=== PATIENT | female | born 2005 | race Caucasian/White ===

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

== ENCOUNTER 2025-04-13 11:03 | Outpatient (AMB) | payer OTHER, SELFPAY ==
--- OUTSIDE RECORDS SUMMARY | 2025-04-13 11:06 | XMS_ITS | Clinical Summary ---
Author Organization [facility] Address [address] [place] [phone] Phone Care Team Providers Care Pattern Maker Name Role Phone La Dillard MD Primary Care Provider + Allergies No known active allergies Medications levonorgestrel- ethinyl estradiol (LILI, Kelsie,) 0.15-0.03 mg per tablet 0 Active spironolactone (ALDACTONE) 50 MG tablet 9 Active phenazopyridine (PYRIDIUM) 100 MG tabletIndicatio ns:Dysuria Take 1 tablet (100 mg total) by mouth 3 (three) times a day as needed for pain (specific location in comments) (bladder). 10 tablet 0 Active dapsone (ACZONE) 5 % topical gel Active sertraline (ZOLOFT) 25 MG tablet Take 25 mg by mouth daily. Active sertraline (ZOLOFT) 100 MG tablet 100 mg. 3 Active tretinoin, emollient, 0.05 % Crea Apply topically nightly at bedtime. Active Active Problems No known active problems Encounters Date Type Department Care Team Description 02/11/2025 4:10 PM EDT Office Visit [facility] [address] [place] [address] [place] [id number] Tessy Mcpherson MD Routine gynecological examination (Primary Dx); Screening for cervical cancer from Last 3 Months Family History Medical History Relation Comments Liver cancer Father Rectal cancer Father Relation Status Comments Father Social History Tobacco Use Types Packs/Day Years Used Date Smoking Tobacco: Never Smokeless Tobacco: Never Tobacco Cessation:Counseling Given: Not Answered Alcohol Use Standard Drinks/Week Comments Not Currently 0 (1 standard drink = 0.6 oz pur e alcohol) Education Answer Date Recorded Are you interested in more education? Not on ramu e 10/27/2022 Are you concerned about learning? Not on file 10/27/2022 No 10/27/2022 No 10/27/2022 Digital Access Answer Date Recorded No 11/24/2022 No 11/24/2022 Reliable internet access at home? Not on file 11/24/2022 Device with a working camera? Not on file Comments Unknown Sex and Gender Information Value Date Recorded Sex Assigned at Not on file Legal Sex Female 8:43 PM EDT Gender Identity Not on file Sexual Orientation Not on file Last Filed Vital Signs Vital Sign Reading Time Taken Comments Blood Pressure 102/70 02/11/2025 4:21 PM EDT Pulse 84 05/20/2020 11:57 AM EST Temperature 36.9 C (98.5 F) 05/20/2020 11:57 AM EST Respiratory Rate 22 05/20/2020 11:57 AM EST Oxygen Saturation 98% 05/20/2020 11:57 AM EST Inhaled Oxygen Concentration - - Weight 65.8 kg (145 lb) 02/11/2025 4:21 PM EDT Height 168.9 cm (5' 6.5 ) 05/20/2020 11:57 AM ES T Body Mass Index - - Plan of Treatment Health Maintenance Due Date Last Done Comments POTASSIUM LEVEL 2004 DEPRESSION SCREENING 2016 SMOKING Hx and SMOKELESS TOBACCO SCREENING 01/27/2017 CHLAMYDIA SCREENING 2020 ADOLESCENT UNIVERSAL LIPID SCREENING 01/27/2021 HEPATITIS C SCREENING 01/27/2022 HIV ONE-TIME SCREENING (18-65 YEARS) 01/27/2022 INFLUENZA VACCINE (#1) 2025 , 04/02/2023, 05/16/2022, Additional history exists COVID-19 VACCINE ( season) 2025 01/16/2022, 02/15/2021, 01/25/2021 Adult Td,Tdap Booster 01/30/2026 01/31/2016 COMBINED DTaP,Tdap,Td (7 - Td or Tdap) 01/30/2026 01/31/2016, 02/24/2008, 08/07/2005, Additional history exists PAP SMEAR 02/11/2026 02/11/2025 HIB VACCINES Completed 05/08/2005, 08/02, 2004, Additional history exists PNEUMOCOCCAL VACCINES (0-49 years) Aged Out 05/08/2005, 2004, 2004, Additional history exists No longer eligible based on patient's age to complete this topic MMR VACCINES Completed 02/24/2008, 02/01/2005 HEPATITIS A VACCINES Completed 03/30/2014, 01/31/20 HPV VACCINES Completed 02/16/2017, 04/02, 01/31/2016 MENINGOCOCCAL VACCINES (ACWY) Completed 01/30/2020, 01/31/2016 MENINGOCOCCAL VACCINES (B) Completed 01/31/2022, Medical Devices Not on file Procedures Procedure Name Priority Date/Time Associated Diagnosis Comments PAP TEST Routine 02/11/2025 12:00 AM EDT from Last 3 Months Results * Pap Test (02/11/2025 12:00 AM EDT) Report [address] [id number] Customer Order Clerk: Claude Ellison MD [facility] Cytology Report FINAL DIAGNOSIS A. PAP SMEAR (THIN PREP) CE: SPECIMEN ADEQUACY: Satisfactory for evaluation; transformation zone present. INTERPRETATION: EPITHELIAL CELL ABNORMALITY - SQUAMOUS. Low grade squamous intraepithelial lesion. This specimen was analyzed by the automated ThinPrep Imaging System ([employer] and manually rescreened by a immigration manager and/or pathologist. Electronically Signed Out By: MD Carmen Baker CT(ASCP) By his/her signature above, the pathologist listed as making the Final Diagnosis certifies that he/she has personally reviewed this case and confirmed or corrected the diagnosis. The Pap test is a screening test primarily for squamous cancers and precursors and has associated false-negative and false-positive results. New technologies such as liquid-based preparations may decrease but will not eliminate all false-negative results. Regular sampling and follow-up of unexplained clinical signs and symptoms are recommended to minimize false negative results. CLINICAL HISTORY Date of Last Menstrual Period: Not Provided Menstrual History: Unknown Contraceptive History: BCPs Other Clinical Conditions: Screening Pap SPECIMEN SOURCE A: PAP SMEAR (THIN PREP) CE Patient Name: KATHI BARCLAY : 2005 (Age: 20) Sex: F Institution: [facility] Location: [facility] Date of Collection: 02/11/2025 Date of Reported: 02/16/2025 14:54 Results to: Tessy Mcpherson MD [facility] Final Diagnosis A. PAP SMEAR (THIN PREP) CE: SPECIMEN ADEQUACY: Satisfactory for evaluation; transformation zone present. INTERPRETATION: EPITHELIAL CELL ABNORMALITY - SQUAMOUS. Low grade squamous intraepithelial lesion. This specimen was analyzed by the automated ThinPrep Imaging System ([employer] and manually rescreened by a immigration manager and/or pathologist. [facility] Conversion Type 02/11/2025 9:43 AM EDT us Tessy Mcpherson MD CYTOLOGY ORDERABLES Edited Res ult - Final [facility] [address] [place] [address] from Last 3 Months Insurance [place] [employer] [facility] Care Teams Pattern Maker Relationship Specialty Start Date End Date La Dillard MD [address] [place] [id number] SANDRA Dodd PCP - General 05/20/20 Additional Source Comments The information contained in this document represents components of the legal health record. It is not the complete legal health record.[facility]
--- OUTSIDE RECORDS SUMMARY | 2025-04-13 11:06 | XMS_ITS | Clinical Summary ---
Author Organization [facility] Address [address] [place] [address] Care Team Providers Care Non Categorical Preschool Teacher Name Role Phone Unavailable Primary Care Provider Unavailabl e Social History Tobacco Use Types Packs/Day Years Used Date Smoking Tobacco: Never Assessed Comments Unknown Sex and Gender Information Value Date Recorded Sex Assigned at Female 04/11/2022 1:33 AM EDT Legal Sex Female 1:33 AM EDT Gender Identity Not on file Sexual Orientation Not on file Last Filed Vital Signs Vital Sign Reading Time Taken Comments Blood Pressure - - Pulse - - Temperature - - Respiratory Rate - - Oxygen Saturation - - Inhaled Oxygen Concentration - - Weight 62.5 kg (137 lb 12.6 oz) 10/14/2021 8:58 AM EDT Height 169 cm (5' 6.54 ) 07/18/2021 10: 15 AM EST Body Mass Index - - Plan of Treatment Not on file
--- NOTE | 2025-04-13 11:10 | MHC.PC.OV ---
Vital Signs 04/13/25 11:14 Height 5 ft 6.5 in Weight 143 lb 8 oz BMI 22.8 BP 98/66 Blood Pressure Location Lt brachial Position Sitting Respiration 12 Pulse 69 Pulse Source Pulse Oximeter Temp 96.9 F Temp Source Oral Pulse Oximetry (%) 99 Oxygen Delivery Method Room Air Intake Visit Reasons: PE Intake Note: New patient to establish care and cpe. Print Shop Assistant Required: No Allergies No Known Allergies Allergy (Verified 04/13/25 11:18) Medication List - Last Reviewed 04/13/25 by Jewel Charles MA dapsone 5% topical levonorgestrel-ethinyl estrad 0.15-0.03 mg (Cheli (28)) 1 tab PO DAILY sertraline 25 mg PO DAILY spironolactone 100 mg PO BID tretinoin 0.05% appl topical DAILY Tobacco use date assessed: 04/13/25 Dental Screening Dental Screen Date: 04/13/25 Did you have a dental visit in the last 12 months?: Yes Did you have a dental problem in the last 6 months where you did not have access to dental care?: No Was dental information given to patient?: Patient has dentist HPI HPI Comments History of Present Illness Details 20 y/o F with acne, GERARDO, strong family hx of Cancer and WPW Surgery: wisdom tooth ext; hx of nasal fracture repair; R elbow fracture w/ repair, reflux procedure 2004 Fhx: Paternal great aunt w/ breast and cervical ca; Paternal great grandma uterine ca; Dad w/ rectal ca (age 48), Brother WPW, Paternal uncle and Dad with Lane syndrome Social: works at [employer], in school for nursing, will grad October 2025; plans to work at [employer] in Trauma/ED Health Maintenance Tdap 2015 Flu 01/2025 Pap 2024, [facility] [place] [facility] 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 [facility] No records Anxiety: - History of anxiety. - Effective management with sertraline. - Counseling previously attempted but not deemed helpful. Acne: - Treatment includes spironolactone and topicals. - Considering decrease in spironolactone usage. - Dermatology consultation planned for dosage adjustment. Fhx WPW. Denies Sx. Offered and declined annual EKG Past Surgical History - Nasal fracture with osteosynthesis, not a complete rhinoplasty. - Right elbow fracture repair in 2011. 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 Family History - Paternal great aunts with history of ovarian, cervical, and breast cancer. - Paternal great grandmother with uterine cancer. - Paternal history of rectal cancer metastasized to liver at age 48. - Brother with Bltbr-Dprmpenxi-Eaanl syndrome. - Paternal uncle and father with Lane syndrome. - Paternal uncle with testicular cancer before age 50. 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 - Student at [employer], expected to graduate in October. - Plays soccer at school. Health Maintenance - Current with flu and tetanus vaccinations. - Plans for colorectal cancer screening to begin at age 37 due to family history. - Monthly self-breast exams performed. - Discussed abdominal symptoms and recommendations for vigilance against colorectal symptoms. Review of Systems - General: Denies weight fluctuations. - Musculoskeletal: Denies joint pain except for menstruation-related back pain. - Dermatologic: Regular dermatology visits for acne. - Cardiovascular: Denies palpitations or cardiac symptoms. - Gastrointestinal: Reports father's history of colorectal cancer symptoms. - Menstrual: Severe premenstrual back pain noted. Physical Exam General: Well developed, well nourished, in no acute distress. Appears stated age. Head: Normocephalic, atraumatic. Eyes: Pupils are equal, round and reactive to light and accommodation. Conjunctivae are clear. Scleras nonicteric bilat. Vision grossly normal. Ears: TMs clear AU, EACS WNL Nose: Patent, without discharge. Neck: No carotid bruit bilat. Supple, no adenopathy or thyromegaly. Breast: Edu on SBE. Patient reports a bump on the right side for a year, but technical editor was not concerned, thought it was bone. Lungs: Clear to auscultation bilaterally. No rales, rhonchi or wheeze noted. Good air flow in all clifford. Heart: Regular rate and rhythm. No murmurs, click, rubs or gallops are noted. Abdomen: Bowel sounds present in all quadrants. The abdomen is soft, nontender, with no masses or organomegaly noted. No hernias are noted. : Deferred. Reviewed recommendations for routine INSURANCE WRITER Pulses: Peripheral pulses are equal and palpable bilaterally. Extremities: No clubbing, cyanosis nor edema is noted. No swelling in ankles. Neurologic: Gait and station normal. Cranial Nerves 2-12 intact. Motor strength grossly symmetrical and intact. No sensory loss. Balance normal. Skin: No rashes, ulcers, or lesions noted. Turgor is good. Skin color is good. Hair and nails are without abnormalities. Psych: Normal eye contact, affect and mood appropriate, and normal interactions. Patient is alert and appropriate to context. Results Pending Discussion Notes We discussed the patient's history of anxiety and acne management strategies, including the potential reduction of spironolactone during her next dermatology visit. Her family history of cancer necessitates earlier colorectal screenings at 37. She is informed about symptoms requiring prompt evaluation considering her strong family cancer history. We talked about the option of annual EKGs for cardiac monitoring due to family history, but the patient prefers a symptomatic approach. A comprehensive lab screening was recommended to establish a baseline considering her family history of various conditions. Patient was given time to ask questions. All questions were answered to their satisfaction. Assessment and Plan 1. Anxiety - Maintain sertraline without changes. - refill sent declined counseling 2. Acne - Current treatment continuing; discuss reduction with data keyer. Active w/ derm 3. Family History of Cancer - Colorectal screening at age 37. - Monitor for symptoms. 4. Menstrual-Related Back Pain - Recommend follow-up with MOTOR EXPERT. consider US given her family hx of INSURANCE WRITER cancer - OCP refilled 5. Preventive Screening - Lab baseline; vaccinations current. Patient Instructions - Continue taking your current medications as prescribed. - Schedule your next dermatology appointment to discuss spironolactone dosage. - Start colorectal cancer screening at age 37. - Monitor for changes in bowel habits or unexpected weight changes. - Follow up with MOTOR EXPERT for menstrual-related pain. - Check your email for access to the health portal and use it to communicate with me. - RTO 1 year CPE, sooner as needed. Consent The patient was informed about the need for colorectal screening starting at age 37 due to family history. I explained the importance of monitoring for gastrointestinal symptoms. Consent was obtained for ordering baseline labs for comprehensive health evaluation. Patient was informed and verbally consented to the use of an ambient scribe for clinic note documentation during this visit. An additional 20 minutes was spent addressing the problem(s) noted at todays visit. This includes time spent before the visit reviewing the chart, time spent during the visit, and time spent after the visit on documentation reviewing laboratory results, diagnostic imaging, medications, performing a medically necessary evaluation, counseling on diagnoses, care coordination, ordering appropriate tests, ordering appropriate medications, review of tests performed by other providers, reporting test results with the patient, communication with other healthcare providers. [facility] Social History (Updated 04/13/25 @ 11:11 by Jewel Charles MA) Housing: House Alcohol intake: current Alcohol intake frequency: a few times a month Patient Tobacco Use Status: Never used Tobacco e-Cigarette/Vaping Use: Never Used Second Hand Smoke Exposure: No service: No Current occupational status: unemployed and student Cognitive needs: No Hearing needs: No Vision needs: No Questionnaire PHQ-9 Over the last 2 weeks, how often have you been bothered by any of the following problems? 1. Little interest or pleasure in doing things: not at all 2. Feeling down, depressed, or hopeless: not at all 3. Trouble falling or staying asleep, or sleeping too much: not at all 4. Feeling tired or having little energy: not at all 5. Poor appetite or overeating: not at all 6. Feeling bad about yourself - or that you are a failure or have let yourself or your family down: not at all 7. Trouble concentrating on things, such as reading the newspaper or watching television: not at all 8. Moving or speaking so slowly that other people could have noticed. Or the opposite - being so fidgety or restless that you have been moving around a lot more than usual: not at all 9. Thoughts that you would be better off or of hurting yourself in some way: not at all Total score: 0 Depression Screening Interpretation: Negative Depression Screening Done: Yes 80674 - PHQ-9 Billing: Yes Source: Developed by Drs. Eugenio Gonzales, Payt Jansen, Ed Coates and colleagues, with an educational francis from [employer]. Thrive Questionnaire Date Thrive assessed: 04/07/25 I am a: Patient What is your living situation today?: I have a steady place to live Within the past 12 months, did the food you bought not last and you didn't have the money to get more?: Never true Within the past 12 months, did you worry whether your food would run out before you got money to buy more?: Never true Do you have trouble paying for medicines?: No Do you have trouble getting transportation to medical appointments?: No Do you have trouble paying your heating and electricity bill?: No Do you have trouble taking care of your child, family member or friend?: No Do you have trouble with day-to-day activities such as bathing, preparing meals, shopping, managing finances, etc.?: No Are you currently unemployed and looking for a job?: No Are you interested in more education?: No Please select the resources that you would like help with: None Currently or been in a relationship where the following occur: No concerns reported THRIVE Score: 0 AUDIT C Alcohol Use Questionnaire (AUDIT-C) 1. How often do you have a drink containing alcohol?: Monthly or less 2. How many drinks containing alcohol do you have on a typical day when you are drinking?: 1 or 2 3. How often do you have six or more drinks on one occasion?: Never Total Score: 1 Score Reviewed/Action Taken: Yes GERARDO-7 AMB Questionnaire GERARDO-7 Date GERARDO - 7 assessed: 04/13/25 Feeling nervous, anxious, or on edge: 3 = Nearly every day Not being able to stop or control worryin = Several days Worrying too much about different things: 1 = Several days Trouble relaxin = Several days Being so restless that it is hard to sit still: 0 = Not at all Becoming easily annoyed or irritable: 0 = Not at all Feeling afraid as if something awful might happen: 3 = Nearly every day Total GERARDO-7 score (0-4 normal; 5-9 mild; 10-14 moderate; 15-21 severe): 9 Source: Developed by Drs. Eugenio Gonzales, Paty Jansen, Ed Coates and colleagues, with an educational francis from [employer]. GERARDO-7 Assessment Billing GERARDO-7 Assessment Tool: GERARDO-7 Assessment 24642 Physical exam (Primary Care) Tobacco/Smoking Status: Tobacco use Status Patient Tobacco Use Status Never used Tobacco 04/13/25 11:11 e-Cigarette/Vaping Use Never Used 04/13/25 11:11 Depression Screening Interpretation: Negative Thrive Assessment: Date of Thrive Assessment Date Thrive assessed 04/07/25 04/07/25 16:59 Currently or been in a relationship where the following occur: No concerns reported Coding Level of Care Code New Pt Level 2 (56796) New Pt Prev Care 18-39yr(36324 Diagnoses Encounter to establish care with new provider Z76.89 Uses oral contraception Z30.41 Acne vulgaris L70.0 Acne type: acne vulgaris GERARDO (generalized anxiety disorder) F41.1 History of Papanicolaou smear of cervix Z92.89 Family history of breast cancer Z80.3 Family history of Dudzg-Wzqickocr-Rattp (WPW) syndrome Z82.49 Family history of uterine cancer Z80.49 Family history of cervical cancer Z80.49 Family history of rectal cancer Z80.0 Dysmenorrhea N94.6 Family history of alcoholism in father Z81.1 Encounter for general adult medical examination without abnormal findings Z00.00 Laboratory exam ordered as part of routine general medical examination Z00.00 Additional Codes GERARDO-7 Assessment Billing - GERARDO-7 Assessment Tool: GERARDO-7 Assessment 02228 ([id number]) PHQ-9 - 16731 - PHQ-9 Billing: Yes ([id number]) Assessment & Plan Assessment & Plan (1) Encounter to establish care with new provider: Code(s): Z76.89 - Persons encountering health services in other specified circumstances (2) Uses oral contraception: Code(s): Z30.41 - Encounter for surveillance of contraceptive pills Category: Social Hx (3) Acne: Comment: NE Derm Code(s): L70.9 - Acne, unspecified Category: Medical Qualifiers: Acne type: acne vulgaris Qualified Code(s): L70.0 - Acne vulgaris (4) GERARDO (generalized anxiety disorder): Code(s): F41.1 - Generalized anxiety disorder Category: Medical (5) History of Papanicolaou smear of cervix: Onset Date: ~2024 Code(s): Z92.89 - Personal history of other medical treatment Category: Medical (6) Family history of breast cancer: Code(s): Z80.3 - Family history of malignant neoplasm of breast Category: Medical (7) Family history of Kblhc-Djzmdsifu-Roflx (WPW) syndrome: Comment: Brother Code(s): Z82.49 - Family history of ischemic heart disease and other diseases of the circulatory system Category: Medical (8) Family history of uterine cancer: Code(s): Z80.49 - Family history of malignant neoplasm of other genital organs Category: Medical (9) Family history of cervical cancer: Code(s): Z80.49 - Family history of malignant neoplasm of other genital organs Category: Medical (10) Family history of rectal cancer: Comment: Dad age 48 Code(s): Z80.0 - Family history of malignant neoplasm of digestive organs Category: Medical (11) Dysmenorrhea: Code(s): N94.6 - Dysmenorrhea, unspecified Category: Medical (12) Family history of alcoholism in father: Code(s): Z81.1 - Family history of alcohol abuse and dependence Category: Medical (13) Encounter for general adult medical examination without abnormal findings: Onset Date: ~04/13/25 Code(s): Z00.00 - Encounter for general adult medical examination without abnormal findings Category: Medical (14) Laboratory exam ordered as part of routine general medical examination: Code(s): Z00.00 - Encounter for general adult medical examination without abnormal findings Category: Medical Plan . Orders: Orders Complete Blood Count no Diff Today Z00.00 - Encounter for general adult medical examination without abnormal findings Comprehensive Met. Panel Today Z00.00 - Encounter for general adult medical examination without abnormal findings Hemoglobin A1c Today Z00.00 - Encounter for general adult medical examination without abnormal findings Lipid Panel Today Z00.00 - Encounter for general adult medical examination without abnormal findings Vitamin D 25-OH Total Today Z00.00 - Encounter for general adult medical examination without abnormal findings Microalbumin, Random (w Creat) Today Z00.00 - Encounter for general adult medical examination without abnormal findings TSH reflex Free T4 Today Z00.00 - Encounter for general adult medical examination without abnormal findings Vitamin B12 and Folate Today Z00.00 - Encounter for general adult medical examination without abnormal findings Medications: New levonorgestrel-ethinyl estrad 0.15-0.03 mg (Cheli (28)) 1 tab PO DAILY 84 tabs 2RF sertraline 25 mg PO DAILY 90 tabs 2RF Patient Instructions: Walk-In Care (Urgent Care): We Make it Easy Walk-in for urgent medical issues such as: ? Seasonal Allergies ? Insect Bites ? Cough ? Diarrhea ? Acute Asthma Attacks ? Back, Knee or Joint Pain ? Ear Infection ? Fever without a Rash ? Headaches ? Nausea ? [place] Eye, Rash or Skin Irritation ? Sore Throat ? Sports Physicals ? Vomiting Most insurances are accepted. Patients do not need to be part of the [facility] to seek care at the walk-in clinic. Locations [address] [place] [address] Open Sunday through Sunday 8am-5pm *Hours may vary due to staffing availability. To confirm Walk-In Care hours please call. [facility] , [place] [address] ? [phone] [facility] Walk-In Care in [place] provides services to ages 18 and over. Open Sunday-Sunday: 7 a.m. to 5 p.m. and Sunday: 9 a.m. to 3 p.m.* *Hours may vary due to staffing availability. To confirm Walk-In Care hours in [place], please call [phone]. [address] [place] [address] ? [phone] [facility] Walk-In Care in [place] provides services to ages 12 and over. Open Sunday-Sunday: 8 a.m. to 5 p.m. Hours may vary due to staffing availability. To confirm Walk-In Care hours in [place], please call [phone]. LABORATORY SERVICES: [facility] Lab ? Primary Location [address] [place] [address] Sunday through Sunday 6:00 AM ? 5:00 PM Sunday 7:00 AM ? 11:00 AM* [phone] The [facility] Lab is centrally located near the front entrance of the [facility] for easy outpatient access. Convenient parking is provided for outpatients. *Hours may vary due to staffing availability. To confirm Laboratory hours for any location, please call [phone]. Offsite Location For your convenience, we offer offsite laboratory draw stations at the following locations: [address] [place] [address] ? [facility] [address], [address] Sunday through Sunday 7:30 AM ? 1:00 PM* [phone] *Hours may vary due to staffing availability. To confirm Laboratory hours for any location, please call [phone]. [place] ? [address] Sunday through Sunday 6:00 AM ? 3:30 PM* Sunday 6:30 AM ? 3 PM* [phone] *Hours may vary due to staffing availability. To confirm Laboratory hours for any location, please call [phone]. [address] [facility] Sunday through Sunday 7:30 AM ? 4:00 PM* [phone] *Hours may vary due to staffing availability. To confirm Laboratory hours for any location, please call [phone]. [address] [facility] Sunday through 9:00 AM ? 4:00 PM* *Hours may vary due to staffing availability. To confirm Laboratory hours for any location, please call [phone]. Appointments are not necessary. Walk-ins are welcome. Like all the departments throughout the [facility], our Lab undergoes frequent reviews to ensure the quality and accuracy of test results, and our staff takes special pride in its status as a nationally accredited facility. Patient Portal: [facility] ONE PATIENT. ONE RECORD. BETTER CARE. [facility] has a fully integrated, cutting-edge mobile electronic health information system that has revolutionized the way we care for our patients and manage our organization. This system improves communication and coordination enabling us to provide safe, higher-quality care, and an overall positive experience for staff and patients. Our first priority, as always, is to deliver the highest quality care possible. The system is running in the background supporting that priority. This portal is for all [facility] services and practices. If you are experiencing any technical difficulties with enrolling or logging into the Patient Portal please complete the [facility] Patient Portal Technical Support Form. [facility] now offers a new secure on-line interactive tool for patients to review their health information ? ?Patient Portal. This interactive web portal will enable patients and their families to take an active role in their care by providing easy, secure access to their health information via the internet. The Patient Portal provides patients with instant access to their health information, including laboratory results, medications, allergies, demographic information, visit history, and more. In addition to managing their own care, parents and health care proxies with authorized consent will appreciate the ability to access the records of those individuals for whom they provide care. Please note: if you wish to gain access (Proxy) to another patient?s portal, you will be required to come to the Medical Records Department in person at [facility]. Both the patient giving proxy access and the proxy will need to provide photo identification and complete the appropriate authorization. The Patient Portal also allows track their appointments online. The [facility] Patient Portal also saves patients time by allowing them to submit updates to their demographic and contact information prior to their visits. Portal email notifications will also alert patients to any new activity on their portal, such as test results and new appointments. In order to initially enroll in the [facility] Patient Portal, you will need to enter some required information including the following: your [facility] Medical Record number your personal home email address name date of Please note: In order to enroll in the [facility] Patient Portal, we need to have your email address on file in your electronic medical record. ?The email address needs to be specific for one person (yourself) in order for your Portal enrollment to be successful. ?You can update your email address in person with our Registration staff when you are registering for a hospital visit. ?Otherwise, you will need to come to the Health Information Management (Medical Records) Department at [facility]. ?We are open from Sunday ? Sunday from 7:30 a.m. ? 4:30 p.m. ?You will be required to present a photo id. Once you have successfully enrolled in the Patient Portal, you will receive a one-time user id and password for the Portal, sent to your email address. ?This will allow you to log into the Patient Portal within 99 hrs and reset your own logon id and password, and define personal security questions. ?Once your permanent login and password have been set, you can log into the [facility] Patient Portal at any time via the blue button above or from the Portal Logon button on any page of the [facility] website. [facility] encourage all of our patients to enroll in Patient Portal as it presents a valuable opportunity for patients and their families to actively participate in their care and stay healthy Welcome to [facility]. ?We look forward to working with you. Health screenings for women You should visit your health care provider from time to time, even if you are healthy. The purpose of these visits is to: Screen for medical issues Assess your risk for future medical problems Encourage a healthy lifestyle Update vaccinations and other preventive care services Help you get to know your provider in case of an illness Information Even if you feel fine, you should still see your provider for regular checkups. These visits can help you avoid problems in the future. For example, the only way to find out if you have high blood pressure is to have it checked regularly. High blood sugar and high cholesterol levels also may not have any symptoms in the early stages. A simple blood test can check for these conditions. There are specific times when you should see your provider or receive specific health screenings. The [place] Preventive Services Task Force publishes a list of recommended screenings. Below are screening guidelines for women ages 18 to 39. BLOOD PRESSURE SCREENING Your blood pressure should be checked at least once every 3 to 5 years if: Your blood pressure is in the normal range (top number less than 120 mm Hg and bottom number less than 80 mm Hg) You don't have risk factors for high blood pressure Ask your provider if you need your blood pressure checked more often if: The top number is 120 to 129 mm Hg or the bottom number is 70 to 79 mm Hg You have diabetes, heart disease, kidney problems, are overweight, or have certain other health conditions You have a first-degree relative with high blood pressure You are Black You had high blood pressure during a If the top number is 130 mm Hg or greater or the bottom number is 80 mm Hg or greater, this is considered stage 1 hypertension. Schedule an appointment with your provider to learn how you can reduce your blood pressure. Watch for blood pressure screenings in your area. Ask your provider if you can stop in to have your blood pressure checked. BREAST CANCER SCREENING Experts do not agree about the benefits of breast self-exams in finding breast cancer or saving lives. Talk to your provider about what is best for you. A screening mammogram is not recommended for most women under age 40. Your provider may discuss and recommend mammograms, MRI scans, or ultrasounds if you have an increased risk for breast cancer, such as: A mother or sister who had breast cancer at a young age (most often starting screening earlier than the age the close relative was diagnosed) You carry a high-risk genetic marker CERVICAL CANCER SCREENING Cervical cancer screening should start at age 21 years unless your provider advises otherwise. After the first test: Women ages 21 through 29 should have a Pap test every 3 years. Exoprts do not agree on whether HPV testing is recommended for this age group. Women ages 30 through 65 should be screened with either a Pap test every 3 years or the HPV test every 5 years or both tests every 5 years (called cotesting ). Women who have been treated for precancer (cervical dysplasia) should continue to have Pap tests for 20 years after treatment or until age 65, whichever is longer. If you have had your uterus and cervix removed (total hysterectomy), and you have not been diagnosed with cervical cancer or precancer (high grade cervical neoplasia), you do not need cervical cancer screening. CHOLESTEROL SCREENING Cholesterol screening should begin at: Age 45 for women with no known risk factors for coronary heart disease Age 20 for women with known risk factors for coronary heart disease Repeat cholesterol screening should take place: Every 5 years for women with normal cholesterol levels More often if changes occur in lifestyle (including weight gain and diet) More often if you have diabetes, heart disease, kidney problems, or certain other conditions DIABETES SCREENING You should be screened for diabetes starting at age 35 and then repeated every 3 years if you have no risk factors for diabetes. Screening may need to start earlier and be repeated more often if you have other risk factors for diabetes, such as: You have a first degree relative with diabetes. You are overweight or have obesity. You have high blood pressure, prediabetes, or a history of heart disease. Screening for diabetes should be done if you are planning to become and you are overweight and have other risk factors such as high blood pressure. DENTAL EXAM Go to the dentist once or twice every year for an exam and cleaning. Your dentist will evaluate if you need more frequent visits. EYE EXAM Have an eye exam every 5 to 10 years before age 40. If you have vision problems, have an eye exam every 2 years or more often if recommended by your provider. You should have an eye exam that includes an examination of your retina (back of your eye) at least every year if you have diabetes. IMMUNIZATIONS Commonly needed vaccines include: Flu shot: get one every year. COVID-19 vaccine: ask your provider what is best for you. Tetanus-diphtheria and acellular pertussis (Tdap) vaccine: have one at or after age 19 as one of your tetanus-diphtheria vaccines if you did not receive it as an adolescent. Tetanus-diphtheria: have a booster (or Tdap) every 10 years. Varicella vaccine: receive 2 doses if you never had chickenpox or the varicella vaccine. Hepatitis B vaccine: receive 2, 3, or 4 doses, depending on your exact circumstances. Measles, mumps, and rubella (MMR) vaccine: receive 1 to 2 doses if you are not already immune to MMR. Your provider can tell you if you are immune. Ask your provider about the human papillomavirus (HPV) vaccine if: You have not received the HPV vaccine in the past You have not completed the full vaccine series (you should catch up on this shot) Ask your provider if you should receive other immunizations if you have certain health problems that increase your risk for some diseases such as pneumonia. INFECTIOUS DISEASE SCREENING Women who are sexually active should be screened for chlamydia and gonorrhea up until age 25. Women 25 years and older should be screened for chlamydia and gonorrhea if at high risk. Screening for hepatitis C: All adults ages 18 to 79 should get a one-time test for hepatitis C. people should be screened at every . Screening for human immunodeficiency virus (HIV): All people ages 15 to 65 should get a one-time test for HIV. Depending on your lifestyle and medical history, you may also need to be screened for infections such as syphilis and HIV, as well as other infections. PHYSICAL EXAM All adults should visit their provider from time to time, even if they are healthy. The purpose of these visits is to: Screen for disease Assess your risk of future medical problems Encourage a healthy lifestyle Update your vaccinations and other preventive care services Maintain a relationship with a provider in case of an illness Your height, weight, and BMI should be checked at every exam. During your exam, your provider may ask you about: Depression and anxiety Diet and exercise Alcohol and tobacco use Safety issues, such as using seat belts, smoke detectors, and intimate partner violence Your medicines and risk for interactions SKIN SELF-EXAM Your provider may check your skin for signs of skin cancer, especially if you're at high risk, such as if you: Have had skin cancer before Have close relatives with skin cancer Have a weakened immune system OTHER SCREENING Talk with your provider about colon cancer screening if you have a strong family history of colon cancer or polyps, or if you have had inflammatory bowel disease or polyps yourself. Routine bone density screening of women under 40 is not recommended.
[2025-04-13 11:14] VITALS: BP 98/66; PULSE 69; RESP 12; TEMP 36.1; O2SAT 99; BMI 22.8
== END 2025-04-13 11:41 | disposition home or self-care (01) ==
LOC: HO.HMCFM 11:04
PROVIDERS: PCP Nurse Practitioner Family; Visit Provider Nurse Practitioner Family
DX: Z00.00 Encounter for general adult medical examination without abnormal findings (principal); L70.0 Acne vulgaris; Z30.41 Encounter for surveillance of contraceptive pills; F41.1 Generalized anxiety disorder; Z92.89 Personal history of other medical treatment; Z80.3 Family history of malignant neoplasm of breast; Z82.49 Family history of ischemic heart disease and other diseases of the circulatory system; Z80.49 Family history of malignant neoplasm of other genital organs; Z80.0 Family history of malignant neoplasm of digestive organs; N94.6 Dysmenorrhea, unspecified; Z81.1 Family history of alcohol abuse and dependence

== ENCOUNTER 2025-04-13 11:03 | Outpatient (REF) | payer OTHER, SELFPAY ==
--- OUTSIDE RECORDS SUMMARY | 2025-04-13 11:51 | XMS_ITS | Data Portability ---
Author Organization [place] - [facility], Allergy Address [address] [address] Care Team Providers Care Pharmacy Graduate Intern Name Role Phone VENKATESH PETERSON Referring Provider Assessment Encounter Date Assessment Date Assessment LastModified by Organization Details LastModified Time 10/17/2024 10/17/2024 19-year-old female presents today for evaluation of her nose. She had nasal trauma and CNR 2 years ago. She reports that in the last year she has developed sinus infections with symptoms including facial pressure and postnasal drip and headaches around the eyes. She does note some bilateral nasal congestion, though airflow seems adequate on exam today. There is a caudal deviation to the right with a spur to the left. I do not see any polyps or purulence. I recommended CT sinus to better assess the sinus anatomy. We discussed that is also possible that her symptoms are manifestation of migraine. [email or web address] Not available 10/22/2024 07:40:57 10/20/2024 10/20/2024 Patient presents for tonsil evaluation as directed by her dentist. Due to 3+ infections in each of the last 3+ years, the patient meets criteria for tonsillectomy. Risks reviewed. There is a 5% risk of bleeding during the healing process when the scab falls off. Occasionally it requires a trip to the emergency room and or operating room to control the bleeding. Additional risks of dehydration, hospital readmission, throat pain, voice change, swallowing dysfunction and velopharyngeal insufficiency (food or beverage coming out of the nose when swallowing) are also possible. After the surgery the patient should expect temporary bad breath, ear aches, stiff neck and the worst sore throat of their life. It will typically last up to 2 weeks. Usually 1 week out of school or work is needed to recover, and then they may return with light activities for an additional week before resuming regular routine. All questions were answered. Patient would prefer not to undergo tonsillectomy if not necessary. Discussed with patient her airway appears widely patent and there is no concern for obstructive sleep apnea. She has successfully undergone general anesthesia in the past for her closed reduction nasal fracture, and she tolerated it well. Given today's exam findings and her history of tolerating general anesthesia in 2022, I do not feel that she is at a significantly increased risk of mortality during general anesthesia for wisdom tooth extraction. There is no indication that her tonsils are at risk of obstructing her airway during an intubated procedure. Patient may follow up as needed. [email or web address] Not available 10/20/2024 16:42:32 Plan of Treatment Reminders Order Date Submit Date Provider Last Modified By Organization Details Last Modified Time Details Appointments None recorded. Lab None recorded. Referral None recorded. Procedures None recorded. Surgeries None recorded. Imaging CT, sinuses, w/o contrast 2024 025 [place] [facility] [place], [address], [address], [place], [address], 09:09:28 Medication Orders None recorded. Patient TargetsNo targets recorded. Patient InstructionsNo instructions recorded. Reason for Referral None Reported. Results Created Date Observation Date Name Description Value Unit Range Abnormal Flag Note LastModifiedBy Organization Detail LastModifiedTime 10/30/19 25 10/27/2024 CT, sinus es, w/o contr ast No observ ation record ed. [email or web address] [facility] [place] [address], [place], [address], 12/02/2024 14:55:25 Result Notes None recorded. Problems Name Problem SNOMED Code Status Onset Date Resolution Date Notes Provider Name and Address Organization Details Recorded Time Closed fracture of nasal bones 82913956 Active 2022 Fracture of nasal bones, initial encounter for closed fracture; Note: Date Diagnosed : 12/08/2022 1:45 PM (S02.2XXA ) Not Available [facility] 4 03:25:28 Fractured nasal bones 187962397 Active 2022 Fracture of nasal bones, subsequen t encounter for fracture with routine healing; Note: Date Diagnosed : 12/20/2022 9:30 AM (S02.2XXD ) Not Available [facility] 4 03:25:28 Follow-up visit Active 2022 Medical surveilla nce following completed treatment ; Note: Date Diagnosed : 12/20/2022 9:30 AM (Z09) Not Available [facility] 4 03:25:28 Chronic sinusitis 08324463 Active 2024 KELI VEGA MD [address] [facility], [place], [address] , [facility] - [facility] 5 10:18:49 Deviated nasal septum 323346098 Active 2024 KELI VEGA MD [address],[place] [facility], [place], [address] , [place] - [facility] 5 10:20:52 Hypertrop hy of tonsils 68245403 Active 2024 Lorin powell [place] - [facility] 5 13:58:06 Recurrent acute streptoco ccal tonsillit is 50266179689 721759 Active 2024 Lorin powell [place] - [facility] 5 16:37:17 Problem Notes None recorded. Procedures Surgical History Date Name Laterality Status Provider Name and Address Organization Details Recorded Time JMSNasal/Sinus Endoscopy completed KELI VEGA MD [address], [place], [address], [facility] - [facility] 10/22/2024 07:41:18 Imaging Results None recorded. Procedure Notes None recorded. Medical Equipment None Reported. Allergies No known drug allergies Medications Name Sig Start Date Stop Date Status Note LastModified by Organization Details LastModified Time amoxicill in 500 mg capsule TAKE 1 TABLET BY MOUTH 3 TIMES A DAY 10/17 completed Not Available Not Available Not Available benzonata te 200 mg capsule TAKE 1 CAPSULE BY MOUTH THREE TIMES A DAY FOR COUGH FOR 7 DAYS 10/17 completed Not Available Not Available Not Available phenazopy ridine 200 mg tablet TAKE 1 TABLET BY MOUTH THREE TIMES DAILY 10/17 completed Not Available Not Available Not Available spironola ctone 100 mg tablet TAKE 1 TABLET BY MOUTH TWICE A DAY active Not Available Not Available No t Available amoxicill in 875 mg tablet TAKE 1 TABLET BY MOUTH 2 TIMES PER DAY FOR 7 DAYS TAKE WITH FOOD 10/17 completed Not Available Not Available Not Available sertralin e 25 mg tablet TAKE 1 TABLET (25 MG TOTAL) BY MOUTH DAILY. active Not Available Not Available No t Available nitrofura ntoin monohydra te/macroc rystals 100 mg capsule TAKE 1 CAPSULE BY MOUTH TWICE DAILY FOR 5 DAYS 10/17 completed Not Available Not Available Not Available dapsone 5 % topical gel active Medicati on ID: [id number] B rand Name: dapsone Send Method: E-Prescr ibed Sub s Allowed: subs OK Speci al Instruct ion: APPLY 1 UNITS TOPICALL Y EVERY MORNING. Medicat ionGener icName: dapsone Not Available Not Available Not Available Altavera (28) 0.15 mg-0.03 mg tablet 10/17 completed Medicati on ID: [id number] B rand Name: Altavera (28) Sen d Method: E-Prescr ibed Sub s Allowed: subs WICHO Dougherty al Instruct ion: TAKE 1 TABLET BY MOUTH EVERY DAY Medi cationGe nericNam e: Altavera (28) Not Available Not Available Not Available Vitals Date Recorded Body height Body mass index (BMI) Body mass index (BMI) [Percentile] Per age and sex Body weight Provider Name and Address Organization Details Last Updated DateTime 10/17/2024 167.64 cm 21.6 kg/m2 47 % 61590.38 g Darcie Hsu [place] - [facility] 10/17/2024 09:51:48 Date Recorded Body height Body mass index (BMI) [Percentile] Per age and sex Body mass index (BMI) Body weight Provider Name and Address Organization Details Last Updated DateTime 10/20/2024 167.64 cm 47 % 21.6 kg/m2 19532.38 g Sayda Waters [place] - [facility] 10/20/2024 13:38:14 Social History None recorded. Functional Status None recorded. Mental Status None recorded. Family History Nothing Reported. Medical History Condition Response Allergies/Hayfever N Heart Problems N Anxiety Y Tonsil Infections N Emphysema N Migraines N Thyroid Problems N Glaucoma N Depression N COPD N Developmental Delay N Nasal or Sinus Problems N Anemia N Immune System Disorder N Anesthesia Complications N Heart Attack ([place]) N Other Skin Condition N Diabetes N Rhinitis N Bleeding Disorder N Food Allergy N Arthritis N Hearing Loss N Hyperlipidemia N Cancer N Stroke N Dementia N Nasal polyps N Asthma N High Cholesterol N Sleep Disorder N GERD/Reflux N Liver Disease N Headaches N Fibromyalgia N Hypertension N Speech Delay N Kidney Disease N Gynecological HistoryNo gynecological history recorded. Obstetrics History GPAL:G 0 P 0 0 0 0 Past Encounters Encounter ID Performer Location Encounter Start Date Encounter Closed Date Diagnosis/Indication Diagnosis SNOMED-CT Code Diagnosis ICD10 Code Diagnosis IMO Codes Diagnosis Note [id number] KELI VEGA MD [facility] [address] [address] 10/17/2024 09:32:20 10/17/2024 10:22:48 Chronic sinusitis 70362105 J32.9 Deviated nasal septum 12 2552889 J34.2 [id number] LORIN ADAN PA-C [facility] [address] [address] 10/20/2024 13:22:18 10/20/2024 14:00:41 Hypertrophy of tonsils 44617705 J35.1 Recurrent acute streptococcal tonsillitis 0999803666 0025963 J03.01 Health Concerns Section Related Observation LastModified by Organization Detai ls LastModified Time None Recorded Concern Status LastModified by Organization Details LastModified Time None Recorded Advance Directives Directive None Recorded Payers Insurance Date Sequence Insurance Name Policy Number Policy Camarena Covered Member ID Camarena Member ID Guarantor Name 06/24/2024 1 [place] [id number] Jovanny Taylor [id number] Susi Taylor 10/20/2024 1 [facility] [id number] Jovanny Taylor [id number] Susi Taylor Notes Date Note Type Note Provider Name and Address Organization Details Recorded Time 10/17/2024 text/html ROS as noted in the HPI 19 yo F here today for evaluation of her nose red band when works out across dorsum, feels warm and itchyhad CNR 2 years agosinus infections about a year ago requiring abx, most recent 3 months ago, face pressure, post nasal drip, no fevers, can get brown drainageheadaches around the eyes starting about a year agospironolactone and control x 7 yearszoloft x 3 years nasal congestion both sidesno snoringno concerns with appearance no allergies symptoms have continued to progress [facility]ELI VEGA MD [facility] [place], [address], [place] - [facility] 10/22/2024 07:42:04 10/20/2024 text/html ROS as noted in the HPI 19 year old female presents for evaluation of the throat. Went to dentist a few days ago, who stated that the wisdom teeth cannot be removed until ENT has evaluated. When she was younger she had strep throat a lot. Thinks she's been diagnosed with strep tonsillitis 3-4 times in the past year, most recently in June. Usually the rapid strep is positive. Once in the past year, it was negative but the culture came back positive a few days later. A single round of antibiotics resolves it but she feels it recurs very soon thereafter. She has had three or more episodes of tonsillitis in each of the past 3 years. Had EBV 5 years ago and no known reactivation events since then. Has had a lot of sinus infections lately. There are no fevers, chills, nor night sweats. No unintentional weight loss. No dysphagia, hoarseness, hemoptysis. Has undergone general anesthesia here with Dr. Lees for closed reduction of a nasal bone fracture in 2022 and tolerated this very well. She does not snore and there is no paroxysmal nocturnal dyspnea. SHANTAL SYED MD [address] [facility] [place], [place], [address], [place] - [facility] 10/20/2024 16:50:23 OBGyn Episode No OBEpisode recorded.
[2025-04-13 14:21] LABS: Hematocrit 44.3 % (37.0-47.0); Hemoglobin 14.6 g/dl (12.0-16.0); Mean Corpuscular HGB Conc 33.0 g/dl (31.0-35.0); Mean Corpuscular Hemoglobin 31.1 pg (27.0-33.0); Mean Corpuscular Volume 94.5 fL (80.0-98.0); NRBC Abs Auto 0.000 X10*3/uL (0.0-0.012); NRBC Pct Auto 0.0 /100WBC (0.0-0.2); Platelet Count 171 X10*3/uL (160-400); Red Blood Count 4.69 X10*6/uL (4.20-5.50); White Blood Count 5.1 X10*3/uL (4.8-10.8)
[2025-04-13 14:43] LABS: Microalbum/Creatinine Ratio Ur 222.5 ug/mg cr (<30)
[2025-04-13 14:56] LABS: Alanine Aminotransferase 16 U/L (0-31); Albumin Level 4.6 g/dL (3.5-5.0); Alkaline Phosphatase 47 U/L (39-117); Anion Gap 12 (12-20); Aspartate Amino Transferase 22 U/L (5-31); Blood Urea Nitrogen 16 mg/dL (9-16); Calcium 9.3 mg/dL (8.4-10.2); Carbon Dioxide 27 mmol/L (22-29); Chloride 105 mmol/L (96-108); Cholesterol 129 mg/dL (<200); Estimated Glomerular Filt Rate > 60; HDL Cholesterol 69 mg/dL (>40); Potassium 4.3 mmol/L (3.3-5.1); Sodium 140 mmol/L (135-145); Total Protein 7.1 g/dL (6.5-8.0); Triglycerides 53 mg/dL (<150)
[2025-04-13 15:06] LABS: Folate 9.8 ng/mL (> or = 4.0); Vitamin B12 347 pg/mL (200-900)
== END 2025-04-13 11:04 | disposition home or self-care (01) ==
LOC: HO.WFDLDS 11:03
PROVIDERS: PCP Nurse Practitioner Family; Visit Provider Nurse Practitioner Family
DX: Z00.00 Encounter for general adult medical examination without abnormal findings (principal); F41.9 Anxiety disorder, unspecified; L70.9 Acne, unspecified; M54.9 Dorsalgia, unspecified; N94.6 Dysmenorrhea, unspecified; L70.0 Acne vulgaris; F41.1 Generalized anxiety disorder; Z92.89 Personal history of other medical treatment; Z80.3 Family history of malignant neoplasm of breast; Z82.49 Family history of ischemic heart disease and other diseases of the circulatory system; Z80.49 Family history of malignant neoplasm of other genital organs; Z80.0 Family history of malignant neoplasm of digestive organs; Z81.1 Family history of alcohol abuse and dependence; Z30.41 Encounter for surveillance of contraceptive pills; Z76.89 Persons encountering health services in other specified circumstances; Z13.1 Encounter for screening for diabetes mellitus
CPT/HCPCS: 36415; 80053; 80061; 82043; 82306; 82570; 82607; 82746; 83036; 84443; 85027; 96127